=== PATIENT | female | born 1990 | race Caucasian/White ===

== ENCOUNTER → 2016-12-02 | Outpatient (CLI) | payer BC ==
[~2016-12-02] MED LIST: NO HOME MEDICATIONS; NORCO 325 MG-51 TA1 PO
== END ==
LOC: RAD 16:44
DX: M79.671 Pain in right foot (principal)

== ENCOUNTER 2016-12-19 09:02 | Emergency (ER) | payer OTHER ==
[~2016-12-19 09:02] MED LIST changes: -NORCO 325 MG-51 TA1 PO
[2016-12-19] MEDS ORDERED: NORCO 325 MG-51 TA1 PO (09:47)
== END 2016-12-19 10:45 | disposition home or self-care (01) ==
LOC: ED 09:02
DX: S62.343A Nondisplaced fracture of base of third metacarpal bone, left hand, initial encounter for closed fracture (principal); S63.247A Subluxation of distal interphalangeal joint of left little finger, initial encounter; S62.301A Unspecified fracture of second metacarpal bone, left hand, initial encounter for closed fracture; V49.9XXA Car occupant (driver) (passenger) injured in unspecified traffic accident, initial encounter

== ENCOUNTER → 2018-07-24 | Outpatient (CLI) | payer BC ==
[2016-12-19 10:49] VITALS: BP 126/77
[~2018-07-24] MED LIST changes: +NORCO 325 MG-51 TA1 PO
== END ==
LOC: RAD 09:29
DX: M79.642 Pain in left hand (principal); Z87.81 Personal history of (healed) traumatic fracture

== ENCOUNTER → 2018-10-25 | Outpatient (CLI) | payer BC ==
[2016-12-19 10:49] VITALS: BP 126/77
[2018-10-25 10:56] LABS: CLUE CELLS NOT OBSERVED (Not Observd)
== END ==
LOC: LAB 09:37
PROVIDERS: Nurse Practitioner Family
DX: N89.8 Other specified noninflammatory disorders of vagina (principal)
CPT/HCPCS: Q0111

== ENCOUNTER → 2020-03-09 | Outpatient (CLI) | payer BC ==
[2016-12-19 10:49] VITALS: BP 126/77
== END ==
LOC: LAB 10:09
DX: L02.91 Cutaneous abscess, unspecified (principal)

== ENCOUNTER → 2021-05-04 | Outpatient (CLI) | payer BC | LOC: RAD 16:53 | DX: S99.922D Unspecified injury of left foot, subsequent encounter (principal) ==